=== PATIENT | male | born 1980 | race Caucasian/White ===

== ENCOUNTER 2023-02-28 15:22 | Outpatient (OUT) | payer OTHER, SELFPAY ==
--- NOTE | 2023-02-28 | XR_ITS ---
The [address] [address] Patient Name: QUYEN CADENA MRN: [id number] date: 1980 Sex: M Assigned Patient Location: [facility] Current Patient Location: [facility] Accession/Order Number: [id number] Exam Date: 02/28/2023 15:45 Report Date: 02/28/2023 16:47 At the request of: JOE HOPE Procedure: XR cervical spine 5V EXAM: XR cervical spine 5V HISTORY: trapezius muscle spasm COMPARISON: None. TECHNIQUE: XR of cervical spine: 4 views. FINDINGS: There is no evidence of fracture or subluxation. The vertebral body heights are maintained. There is straightening of cervical lordosis. Atlantoaxial interval is unremarkable. Facet joints appear grossly unremarkable. The paraspinal soft tissues are unremarkable. XR/XR cervical spine 5V IMPRESSION: No acute abnormality. Straightening of cervical lordosis, may be related to positioning or muscle spasm. Electronically authenticated by: STONEY CORBETT Date: 02/28/2023 16:47
== END 2023-02-28 15:23 | disposition home or self-care (01) ==
LOC: RAD 15:29
PROVIDERS: PCP Family Medicine; Visit Provider Family Medicine
DX: M62.830 Muscle spasm of back (principal); M43.8X2 Other specified deforming dorsopathies, cervical region
CPT/HCPCS: 72050